=== PATIENT | female | born 1985 | race Caucasian/White ===

== ENCOUNTER 2016-09-12 06:09 | Day surgery (SDC) | payer OTHER | END 2016-09-12 23:59 | disposition home or self-care (01) | LOC: MSC 06:09 | PROVIDERS: Surgery Plastic and Reconstructive Surgery | PROC: 0HQV0ZZ Repair Bilateral Breast, Open Approach (ICD-10-PCS; 2016-09-12) | PROC: 0HUV0JZ Supplement Bilateral Breast with Synthetic Substitute, Open Approach (ICD-10-PCS; principal; 2016-09-12 07:15) | DX: N64.81 Ptosis of breast (principal); Z98.51 Tubal ligation status; Z98.890 Other specified postprocedural states; Z86.2 Personal history of diseases of the blood and blood-forming organs and certain disorders involving the immune mechanism | CPT/HCPCS: 84703; A9270-GY; C1789; J0690; J1580; J2250; J2270; J2405; J2710; J3010 ==